=== PATIENT | female | born 1995 | race American Indian/Alaskan Native ===

== ENCOUNTER → 2017-12-06 | Emergency (ER) | payer BC ==
[~2017-12-06] VITALS: Ht 170.2 cm; Wt 77.1 kg
[~2017-12-06] MED LIST: SERTRALINE HCL100 MG PO
== END | disposition home or self-care (01) ==
LOC: ER 08:04
DX: R42 Dizziness and giddiness (principal); F41.8 Other specified anxiety disorders; N39.0 Urinary tract infection, site not specified